=== PATIENT | male | born 1955 | race Caucasian/White ===

== ENCOUNTER → 2024-03-11 11:37 | Outpatient (REF) | payer MEDICARE, OTHER, SELFPAY | LOC: RAD 11:37 | PROVIDERS: ATTENDING PHYSICIAN Family Medicine | DX: E78.2 Mixed hyperlipidemia (principal); I10 Essential (primary) hypertension; K21.9 Gastro-esophageal reflux disease without esophagitis; G89.4 Chronic pain syndrome; M25.50 Pain in unspecified joint | CPT/HCPCS: 73110; 73610; 73630 ==

== ENCOUNTER 2024-09-29 06:18 | Day surgery (SDC) | payer MEDICARE, OTHER, SELFPAY | END 2024-09-29 10:51 | disposition home or self-care (01) | LOC: GI 06:18 | PROVIDERS: ATTENDING PHYSICIAN Internal Medicine Gastroenterology | DX: Z12.11 Encounter for screening for malignant neoplasm of colon (principal); D12.0 Benign neoplasm of cecum; D12.3 Benign neoplasm of transverse colon; D12.4 Benign neoplasm of descending colon; K57.30 Diverticulosis of large intestine without perforation or abscess without bleeding; K64.8 Other hemorrhoids; Z86.0100 Personal history of colon polyps, unspecified | CPT/HCPCS: 45380; 88305 ==